=== PATIENT | male | born 1995 ===

== ENCOUNTER 2021-04-01 16:27 | Day surgery (SDC) | payer OTHER ==
[2021-04-01 16:51] LABS: BASOPHILS # (AUTO) 0.1 10^3/uL (0.0-0.1); BASOPHILS % (AUTO) 0.6 %; EOSINOPHILS # (AUTO) 0.3 10^3/uL (0.0-0.7); EOSINOPHILS % (AUTO) 1.8 %; HGB - HEMOGLOBIN 14.9 g/dL (14.0-18.0); LYMPHOCYTES # (AUTO) 3.2 10^3/uL (1.5-3.5); LYMPHOCYTES % (AUTO) 22.4 %; MEAN CORPUSCULAR HGB CONC 33.1 g/dL (32.0-36.0); MEAN CORPUSCULAR VOLUME 84.6 fL (80.0-94.0); MEAN PLATELET VOLUME 9.9 fL (7.4-11.4); MONOCYTES % (AUTO) 7.2 %; NEUTROPHILS # (AUTO) 9.7 10^3/uL (1.5-6.6); NEUTROPHILS % (AUTO) 67.7 %; PLT - PLATELET COUNT 321 10^3/uL (130-450); RED BLOOD COUNT 5.32 10^6/uL (4.70-6.10); RED CELL DISTRIBUTION WIDTH 12.7 % (12.0-15.0); WHITE BLOOD COUNT 14.2 x10^3/uL (4.8-10.8)
[2021-04-01 17:05] LABS: ALBUMIN 4.8 g/dL (3.2-5.5); ALBUMIN/GLOBULIN RATIO 1.4 (1.0-2.2); BILIRUBIN,TOTAL 0.8 mg/dL (0.2-1.0); CALCIUM 9.9 mg/dL (8.5-10.3); POTASSIUM 4.1 mmol/L (3.5-5.0); TOTAL PROTEIN 8.3 g/dL (6.7-8.2)
[2021-04-01] MEDS ORDERED: IOVERSOL 320 100 ML VIAL IVP ONE ×2 (18:55→19:02)
--- NOTE | 2021-04-01 18:58 | ED Physician Documentation ---
History of Present Illness - Stated complaint Stated Complaint: ABD PAIN - Chief complaint Chief Complaint: Abd Pain - Additonal information Additional information: 25-year-old male presents emergency department for evaluation of acute right lower quadrant abdominal pain that began yesterday after moving homes. He does not remember an inciting event but has had persistent tenderness in the right lower part of his abdomen. Denies fevers nausea or vomiting. No hematuria or dysuria. No history of similar in the past. No pertinent past surgical history Review of Systems Constitutional: reports: Reviewed and negative Ears: reports: Loss of hearing Nose: reports: Reviewed and negative Cardiac: reports: Reviewed and negative Respiratory: reports: Reviewed and negative GI: reports: Abdominal Pain. denies: Nausea, Vomiting, Constipation, Diarrhea : denies: Dysuria, Frequency, Hesitancy Skin: reports: Reviewed and negative Musculoskeletal: reports: Reviewed and negative PD PAST MEDICAL HISTORY - Allergies Allergies/Adverse Reactions: Allergies Allergy/AdvReac Type Severity Reaction Status Date / Time No Known Drug Allergies Allergy Verified 04/01/21 16:39 PD ED PE NORMAL - General General: Alert and oriented X 3, No acute distress - HEENT HEENT: PERRL - Neck Neck: Supple, no meningeal sign - Respiratory Respiratory: No respiratory distress - Abdomen Abdomen: Normal bowel sounds, Soft. No: Non tender (Mild tenderness to the right lower quadrant without guarding or rebound. Negative McBurney's.) Results - Vitals Vitals: Vital Signs - 24 hr 04/01/21 04/01/21 16:33 19:12 Temperature 36.5 C Heart Rate 86 81 Respiratory 16 16 Rate Blood Pressure 153/78 H 142/84 H O2 Saturation 98 100 Oxygen O2 Source Room air - Labs Labs: Laboratory Tests 04/01/21 04/01/21 04/01/21 16:47 16:47 18:45 WBC 14.2 H RBC 5.32 Hgb 14.9 Hct 45.0 MCV 84.6 MCH 28.0 MCHC 33.1 RDW 12.7 Plt Count 321 MPV 9.9 Neut # (Auto) 9.7 H Lymph # (Auto) 3.2 [place] # (Auto) 1.0 Eos # (Auto) 0.3 Baso # (Auto) 0.1 Absolute Nucleated RBC 0.00 Nucleated RBC % 0.0 Sodium 137 Potassium 4.1 Chloride 100 L Carbon Dioxide 27 Anion Gap 10.0 BUN 19 Creatinine 1.0 Estimated GFR (MDRD) 90 Glucose 89 Calcium 9.9 Total Bilirubin 0.8 AST 39 ALT 82 H Alkaline Phosphatase 51 Total Protein 8.3 H Albumin 4.8 Globulin 3.5 Albumin/Globulin Ratio 1.4 Lipase 23 Urine Color YELLOW Urine Clarity CLEAR Urine pH 5.5 Ur Specific [place] 1.025 Urine Protein NEGATIVE Urine Glucose (UA) NEGATIVE Urine Ketones NEGATIVE Urine Occult Blood NEGATIVE Urine Nitrite NEGATIVE Urine Bilirubin NEGATIVE Urine Urobilinogen 0.2 (NORMAL) Ur Leukocyte Esterase NEGATIVE Ur Microscopic Review NOT INDICATED Urine Culture Comments NOT INDICATED - Rads (name of study) CT abd Radiology: Final report received (Distended appendix with surrounding infiltrative changes compatible with acute appendicitis.) PD MEDICAL DECISION MAKING - ED course Complexity details: reviewed results, re-evaluated patient, d/w patient ED course: 25-year-old male presents emergency department for evaluation of acute right lower quadrant abdominal pain that began yesterday afternoon when moving homes. No fevers or vomiting. On exam he did have mild tenderness in the right lower quadrant but not consistent with an equivocal McBurney's. Nonetheless given the location of the pain a CT of the abdomen was completed and it does show acute ab and ascites. No abscess or perforation. CT imaging was discussed with Dr. Angel Espana on-call for surgery. Zosyn will be ordered. Further disposition pending surgical evaluation the likely same-day surgery. Plan and findings discussed with the patient who is in agreement. Departure - Departure Disposition: ED Transfer to [facility] Clinical Impression: Acute appendicitis Qualifiers: Acute appendicitis type: with localized peritonitis Appendicitis gangrene presence: without gangrene Appendicitis perforation presence: without perforation Appendicitis abscess presence: without abscess Qualified Code(s): K35.30 - Acute appendicitis with localized peritonitis, without perforation or gangrene
--- NOTE | 2021-04-01 19:15 | CT Report ---
PROCEDURE: Abdomen/Pelvis W INDICATIONS: RLQ abd pain CONTRAST: IV CONTRAST: Optiray 320 ml: 100 PO CONTRAST: *NO PO CONTRAST TECHNIQUE: After the administration of intravenous contrast, 5 mm thick sections acquired from the diaphragms to the symphysis. 5 mm thick coronal and sagittal reformats were acquired. For radiation dose reducti on, the following was used: automated exposure control, adjustment of mA and/or kV according to francisco ent size. COMPARISON: None. FINDINGS: Inferior chest: No focal consolidation, pleural effusion, or pneumothorax. No cardiomegaly or perica rdial effusion. Gallbladder: The gallbladder is distended with a smooth thin wall. Biliary tree: No intra-or extrahepatic biliary ductal dilatation. Liver: The liver demonstrates normal enhancement, size, and contour. Hepatic steatosis. Spleen: Normal enhancement, size and morphology is seen. Pancreas: No contour deforming mass or inflammatory change. Adrenals: Normal size without masses. Kidneys/ureters: Normal size and morphology. No solid masses or hydronephrosis. Vasculature: No evidence of aneurysm or other significant vascular pathology. Lymphatic system: No pathologic enlargement by size criteria. GI/mesentery: No evidence of intestinal obstruction. Distended appendix with surrounding infiltrative changes, compatible with acute appendicitis. Peritoneum/Retroperitoneum: No free intraperitoneal gas or large collection. Urinary bladder: Underdistended. Pelvic organs: No significant abnormality. Bones/soft tissues: No significant abnormality. IMPRESSION: 1.Acute appendicitis. Reviewed by: Ronn Beaver MD on 04/01/2021 7:14 PM PST Approved by: Ronn Beaver MD on 04/01/2021 7:14 PM PST Station ID: [id number]
[2021-04-01 19:24] LABS: BILIRUBIN,URINE NEGATIVE (NEGATIVE); GLUCOSE, URINE (UA) NEGATIVE (NEGATIVE); KETONES,URINE (UA) NEGATIVE (NEGATIVE); LEUKOCYTE ESTERASE, URINE NEGATIVE (NEGATIVE); NITRITE,URINE NEGATIVE (NEGATIVE); OCCULT BLOOD,URINE NEGATIVE (NEGATIVE); PH,URINE 5.5 PH (5.0-7.5); PROTEIN,URINE NEGATIVE (NEGATIVE); UROBILINOGEN,URINE 0.2 (NORMAL) E.U./dL (NORMAL)
[2021-04-01 19:27] LABS: CLARITY,URINE CLEAR (CLEAR)
[2021-04-01] MEDS ORDERED: PIPERACILLIN/TAZOBACTAM 3.375 GM in SODIUM CHLORIDE 0.9% MINIBAG 100 ML IV STA (19:38)
[2021-04-01] MEDS: SODIUM CHLORIDE 0.9% 1,000 ML IV STA (20:10)
[2021-04-01] MEDS ORDERED: ATROPINE ABBOJECT 1 MG/10 ML SYRINGE IVP PRN (20:27)
[2021-04-01] MEDS ORDERED: NALOXONE 0.4 MG/ML VIAL IVP PRN (20:27)
[2021-04-01] MEDS ORDERED: fentaNYL 100 MCG/2 ML VIAL IVP PRN (20:27)
[2021-04-01] MEDS ORDERED: METOCLOPRAMIDE 10 MG/2 ML VIAL IVP PRN (20:27)
[2021-04-01] MEDS ORDERED: ePHEDrine 50 MG/ML VIAL IVP PRN (20:27)
[2021-04-01] MEDS ORDERED: MORPHINE 2 MG/ML CARPUJECT IVP PRN (20:27)
[2021-04-01] MEDS ORDERED: ONDANSETRON 4 MG/2 ML VIAL IVP PRN ×2 (20:27→23:04)
[2021-04-01] MEDS ORDERED: BUPIVACAINE 0.25% PF 30 ML VIAL ONE (20:45)
[2021-04-01] MEDS ORDERED: MIDAZOLAM 2 MG/2 ML VIAL ONE (20:54)
[2021-04-01] MEDS ORDERED: DEXAMETHASONE 4 MG/ML VIAL ONE (20:54)
[2021-04-01] MEDS ORDERED: ROCURONIUM 50 MG/5 ML VIAL ONE ×2 (20:54→21:52)
[2021-04-01] MEDS ORDERED: fentaNYL 100 MCG/2 ML VIAL ONE ×2 (20:54→21:53)
[2021-04-01] MEDS ORDERED: ONDANSETRON 4 MG/2 ML VIAL ONE (20:54)
[2021-04-01] MEDS ORDERED: PROPOFOL 200 MG/20 ML VIAL IVP ONE (20:54)
[2021-04-01] MEDS ORDERED: LIDOCAINE-MPF 2% 5 ML VIAL ONE (20:54)
--- NOTE | 2021-04-01 20:54 | ANESTHESIA ---
Pre-Anesthesia VS, & Labs - Diagnosis acute appendicitis - Procedure lap appy Vital Signs: Temp Pulse Resp BP Pulse Ox 36.5 C 81 16 142/84 H 100 04/01/21 16:33 04/01/21 19:12 04/01/21 19:12 04/01/21 19:12 04/01/21 19:12 Height: 5 ft 9 in Weight (kg): 116.573 kg Body Mass Index: 37.9 BMI Classification: Obese - NPO >8 hours - Lab Results Current Lab Results: Laboratory Tests 04/01/21 16:47: Sodium 137, Potassium 4.1, Chloride 100 L, Carbon Dioxide 27, Anion Gap 10.0, BUN 19, Creatinine 1.0, Estimated GFR (MDRD) 90, Glucose 89, Calcium 9.9, Total Bilirubin 0.8, AST 39, ALT 82 H, Alkaline Phosphatase 51, Total Protein 8.3 H, Albumin 4.8, Globulin 3.5, Albumin/Globulin Ratio 1.4, Lipase 23 04/01/21 16:47: WBC 14.2 H, RBC 5.32, Hgb 14.9, Hct 45.0, MCV 84.6, MCH 28.0, MCHC 33.1, RDW 12.7, Plt Count 321, MPV 9.9, Neut # (Auto) 9.7 H, Lymph # (Auto) 3.2, [place]in # (Auto) 1.0, Eos # (Auto) 0.3, Baso # (Auto) 0.1, Absolute Nucleated RBC 0.00, Nucleated RBC % 0.0 Fish Bones: 04/01/21 16:47 04/01/21 16:47 Home Medications and Allergies Active Medications Atropine Sulfate (Atropine Abboject 1 Mg/10 Ml Syringe) 0.5 mg IVP Q5M PRN PRN Reason: Bradycardia Stop: 04/02/21 20:27 Ephedrine Sulfate (Ephedrine 50 Mg/Ml Vial) 10 mg IVP Q5M PRN PRN Reason: HYPOTENSION Stop: 04/02/21 20:27 Fentanyl (Fentanyl 100 Mcg/2 Ml Vial) 25 - 50 mcg IVP Q5M PRN PRN Reason: BREAKTHROUGH PAIN (2nd Choice) Stop: 04/02/21 20:27 Hydromorphone HCl (Hydromorphone 0.5 Mg/0.5 Ml Syringe) 0.2 - 0.6 mg IVP Q5M PRN PRN Reason: PAIN (First Choice) Stop: 04/02/21 20:27 Lactated Ringer's (Lr) 1,000 mls @ 100 mls/hr IV .Q10H TERI Stop: 04/02/21 06:59 Metoclopramide HCl (Metoclopramide 10 Mg/2 Ml Vial) 10 mg IVP Q6HR PRN PRN Reason: N/V not relieved by Zofran Morphine Sulfate (Morphine 2 Mg/Ml Carpuject) 2 - 4 mg IVP Q5M PRN PRN Reason: PAIN (3rd Choice) Stop: 04/02/21 20:27 Naloxone HCl (Naloxone 0.4 Mg/Ml Vial) 0.1 mg IVP Q2M PRN PRN Reason: RESP RATE <8 Stop: 04/02/21 20:27 Ondansetron HCl (Ondansetron 4 Mg/2 Ml Vial) 4 mg IVP ONCE PRN PRN Reason: N/V (First Choice) Stop: 04/02/21 20:27 Allergies/Adverse Reactions: Allergies Allergy/AdvReac Type Severity Reaction Status Date / Time No Known Drug Allergies Allergy Verified 04/01/21 16:39 Anes History & Medical History - Anesthetic History Anesthesia Complications: reports: No previous complications Family history of Anesthesia Complications: Denies Family history of Malignant Hyperthermia: Denies - Medical History Cardiovascular: reports: None Pulmonary: reports: None Gastrointestinal: reports: None Urinary: reports: None Neuro: reports: None Musculoskeletal: reports: None Endocrine/Autoimmune: reports: None Blood Disorders: reports: None Skin: reports: None Psychosocial: reports: Alcohol Exam General: Alert, Oriented x3, Cooperative Dental: WNL Mouth Opening: Greater than 4 Fingerbreadths Neck Mobility: Normal Mallampati classification: I Respiratory: Lungs clear Cardiovascular: Regular rate Abdomen: Normal bowel sounds Plan Anesthesia Type: General Consent for Procedure(s) Verified and Reviewed: Yes Code Status: Attempt Resuscitation ASA classification: 1-Healthy patient Is this case an emergency?: No
--- NOTE | 2021-04-01 20:55 | HISTORY & PHYSICAL EXAMINATION ---
Chief Complaint - Chief Complaint Chief Complaint: Progressive abdominal pain History of Present Illness - Admitted From Admitted From:: ED - History Obtained From Records Reviewed: yes History obtained from: pt Exam Limitations: none - History of Present Illness HPI Comment/Other: Pain started yesterday 4 pm and has progressed. Nothing to eat since this am. Seen and evaluated in the ED. CT scan appendicitis. wbc 14 Meds/Allgy - Allergies Allergies/Adverse Reactions: Allergies Allergy/AdvReac Type Severity Reaction Status Date / Time No Known Drug Allergies Allergy Verified 04/01/21 16:39 Review of Systems - Other Findings Other Findings: 10 pt ros as above otherwise unremarkable Exam - Vital Signs Reviewed Vital Signs: Yes Vital Signs: Vital Signs x48h Temp Pulse Resp BP Pulse Ox 04/01/21 19:12 81 16 142/84 H 100 04/01/21 16:33 36.5 C 86 16 153/78 H 98 - Physical Exam General Appearance: positive: No acute distress, Alert Eyes Bilateral: positive: PERRL, EOMI ENT: positive: No signs of dehydration Neck: positive: No JVD Respiratory: positive: No respiratory distress, Breath sounds nml Cardiovascular: positive: Regular rate & rhythm Abdomen: positive: No distention, Other (tenderness rlq present) Neurologic/Psychiatric: positive: Oriented x3 Conclusion/Plan - Problem List (1) Acute appendicitis Conclusion/Plan: plan appendectomy. parq held and consent obtained Qualifiers: Acute appendicitis type: with localized peritonitis Appendicitis gangrene presence: without gangrene Appendicitis perforation presence: without perforation Appendicitis abscess presence: without abscess Qualified Code (s): K35.30 - Acute appendicitis with localized peritonitis, without perforation or gangrene - Lab Results Fish Bones: 04/01/21 16:47 04/01/21 16:47 - Diagnostic Imaging Results Diagnostic Imaging Results: positive: Read independently
[2021-04-01] MEDS ORDERED: LACTATED RINGERS 1,000 ML IV SCH (21:00)
[2021-04-01] MEDS ORDERED: SODIUM CHLORIDE 0.9% 1,000 ML IV ONE (21:01)
[2021-04-01] MEDS ORDERED: LACTATED RINGERS 1,000 ML IV ONE (21:48)
[2021-04-01] MEDS ORDERED: GLYCOPYRROLATE 1 MG/5 ML VIAL ONE (22:04)
[2021-04-01] MEDS ORDERED: SUGAMMADEX 200 MG/2 ML VIAL IVP ONE (22:25)
[2021-04-01] MEDS ORDERED: KETOROLAC 30 MG/ML VIAL ONE (22:43)
[2021-04-01] MEDS ORDERED: HYDROcod/ACETAM 5/325 MG TABLET PO PRN (23:04)
[2021-04-01] MEDS ORDERED: KETOROLAC 15 MG/ML VIAL IVP PRN (23:08)
[2021-04-01] MEDS ORDERED: ACETAMINOPHEN 500 MG TABLET PO PRN (23:08)
--- NOTE | 2021-04-01 23:13 | OPERATIVE REPORT ---
Operative Report - General Procedure Date: 04/01/21 Planned Procedure: laparoscopic appendectomy Pre-Op Diagnosis: appendicitis, acute Procedure Performed: laparoscopic appendectomy Post Op Diagnosis: appendicitis supurative - Procedure Note Primary Surgeon: luther beauchamp Anesthesia Technique: General ET tube, Local Pathology: appendix Estimated Blood Loss (mL): 10 Drain/Tube Type: Other (none) Indications: appendicitis Findings: as above Complications: none - Other Other Information/Narrative: The patient was properly identified brought to the operating room and placed in supine position. The patient was previously given antibiotics. Sequential compression devices were placed. General endotracheal anesthesia was induced. The patient was prepped and draped in a sterile fashion. Local anesthetic was given to incision areas. An infraumbilical incision was made in and proceeded down to the fascia. The fascia was incised lifted upwards and abdomen entered with a Veress needle. CO2 was insufflated to a pressure of 15. A 12 mm trocar was placed with 30 degree scope. There was no evidence of injury from Veress needle or trocar placement. Under direct vision a 5 mm trocar was placed suprapubic and a 5 mm trocar was placed in the right upper quadrant. Appendix was identified and retracted anteriorly. Peritoneal attachments were taken down with careful use of cautery. Appendix was mobilized more anterior. A plane was then created between the mesoappendix and the appendix at the cecum. Appendix was divided with an Endo MANISH intestinal load to include up a small portion of the cecum. The mesoappendix was then divided with an Endo MANISH vascular load. There was secure closure at the cecum and hemostasis was assured. The appendix was brought out. The abdomen was thoroughly irrigated and hemostasis again assured. Trochars were removed under direct vision. Fascia at the infraumbilical site was closed with a running 0 Vicryl suture. Subcutaneous tissue was irrigated and skin reapproximated with buried interrupted 4-0 Monocryl. Dressings were applied. The patient tolerated the procedure well was awakened and brought to recovery in good condition.
[2021-04-01] MEDS: HYDROmorphone 0.5 MG/0.5 ML SYRINGE IVP PRN ×2 (23:30→23:35)
[2021-04-01] MEDS ORDERED: HYDROmorphone 1 MG/ML CARPUJECT ONE (23:33)
--- NOTE | 2021-04-01 23:34 | XRAY Report ---
PROCEDURE: Chest 1 View X-Ray INDICATIONS: postop / edema TECHNIQUE: One view of the chest was acquired. COMPARISON: None FINDINGS: Surgical changes and devices: None. Lungs and pleura: No pleural effusions or pneumothorax. Lungs are clear. Mediastinum: Mediastinal contours appear normal. Heart size is normal. Bones and chest wall: No suspicious bony lesions. Overlying soft tissues appear unremarkable. IMPRESSION: No evidence acute pulmonary process. Reviewed by: César Cui MD on 04/01/2021 11:33 PM [facility] Approved by: César Cui MD on 04/01/2021 11:33 PM [facility] Station ID: [id number]
[2021-04-02] MEDS: PIPERACILLIN/TAZOBACTAM 3.375 GM in SODIUM CHLORIDE 0.9% MINIBAG 100 ML IV SCH ×2 (00:20→08:27)
--- NOTE | 2021-04-02 04:54 | ANESTHESIA POST OP EVALUATION ---
Anesthesia Post Eval - Post Anesthesia Eval Vitals: Last Vital Signs Temp 37.5 C 04/02/21 00:09 Pulse 79 04/02/21 03:08 Resp 20 04/02/21 03:08 BP 111/49 L 04/02/21 03:08 Pulse Ox 97 04/02/21 03:08 CV Function Including HR & BP: Stable Pain Control: Satisfactory Nausea & Vomiting: Negative Mental Status: Baseline Respiratory Status: Airway Patent Hydration Status: Satisfactory Anesthesia Complications: None
[2021-04-02] MEDS: SODIUM CHLORIDE 0.9% 1,000 ML IV STA (04:57)
--- NOTE | 2021-04-02 11:01 | Discharge Plan ---
Discharge Plan Problem Reviewed?: Yes Disposition: Home, Self Care Condition: Good Prescriptions: HYDROcod/ACETAM 5/325 [[place] 5/325] 1 each PO Q6H PRN #20 tablet PRN Reason: Pain Diet: Regular Activity Restrictions: No Restrictions Shower Restrictions: No Driving Restrictions: No Plan of Treatment: surgery and antibiotics for appendicitis 04/01/2021 Assessment: doing well after treatment for appendicitis Additional Instructions or Follow Up instructions: call the office with any concerns and call to make an appointment in the surgery office [phone] No Smoking: If you smoke, Please STOP! Call for help. Follow-up with: KALEIGH BOSE MD [Primary Care Provider] -
[2021-04-02 13:26] VITALS: BP 129/62
== END 2021-04-02 13:15 | disposition home or self-care (01) ==
LOC: ED 16:27 → SDS 20:30 → MS3 04-02 00:03 → SDS 04-02 13:15
PROVIDERS: ATTEND Surgery
PROC: 0DTJ4ZZ Resection of Appendix, Percutaneous Endoscopic Approach (ICD-10-PCS; principal; 2021-04-01 20:45)
DX: K35.30 Acute appendicitis with localized peritonitis, without perforation or gangrene (principal); E66.9 Obesity, unspecified; Z68.37 Body mass index [BMI] 37.0-37.9, adult
CPT/HCPCS: 36415; 44970; 71045; 74177; 80053; 81003; 83690; 85025; 96365; 99284; 99285; A9270; J1170; J7120; Q9967; 81001; 87086

== ENCOUNTER 2022-05-05 12:15 | Emergency (ER) | payer OTHER ==
[2022-05-05 12:26] VITALS: BP 143/89
--- NOTE | 2022-05-05 13:18 | ED Physician Documentation ---
History of Present Illness - Stated complaint Stated Complaint: FACE ITCHY, VOMITING - Chief complaint Chief Complaint: Allergic Rx - History obtained from History obtained from: Patient - Additonal information Additional information: Previously healthy 11-year-old gentleman was on leave and then shaved yesterday for the first time in a week. Today he was at work around 10 AM and had a single episode of vomiting, no associated abdominal pain. 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 Other than very mild facial itchiness, he feels fine now. Review of Systems Constitutional: denies: Fever, Chills Nose: denies: Rhinorrhea / runny nose, Congestion Throat: denies: Sore throat Cardiac: denies: Chest pain / pressure, Palpitations Respiratory: denies: Dyspnea, Cough PD PAST MEDICAL HISTORY - Past Medical History Cardiovascular: None Respiratory: None Neuro: None Endocrine/Autoimmune: None GI: None : None Musculoskeletal: None Derm: None - Present Medications Home Medications: Ambulatory Orders Medication Instructions Recorded Confirmed Escitalopram [Lexapro] 10 mg PO DAILY 05/05/22 05/05/22 - Allergies Allergies/Adverse Reactions: Allergies Allergy/AdvReac Type Severity Reaction Status Date / Time No Known Drug Allergies Allergy Verified 05/05/22 12:26 PD ED PE NORMAL - Vitals Vital signs reviewed: Yes - General General: Alert and oriented X 3, No acute distress - HEENT HEENT: Pharynx benign - Neck Neck: Supple, no meningeal sign, No bony TTP - Derm Derm: Other (On his face he has what mostly looks like opal bumps that spare the forehead. That said his said they were on the forehead earlier. 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 He feels fine now so I do not think further evaluation or treatment is necessary other than self monitoring. Departure - Departure Disposition: 01 Home, Self Care Clinical Impression: Rash and nonspecific skin eruption Condition: Good Record reviewed to determine appropriate education?: Yes Instructions: ED Dermatitis Non Specific Rash Comments: The cause of your rash is not clear, but does not appear like a severe allergic reaction nor anything dangerous at this point. Keep an eye on it and return if worse. 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
== END 2022-05-05 13:21 | disposition home or self-care (01) ==
LOC: ED 12:15
DX: R21 Rash and other nonspecific skin eruption (principal)
CPT/HCPCS: 99281